=== PATIENT | female | born 1970 | race Hispanic/Latino ===

== ENCOUNTER 2021-05-05 21:18 | Emergency (ER) | payer OTHER ==
[~2021-05-05] VITALS: Ht 160 cm; Wt 74.4 kg
[2021-05-05 23:06] VITALS: BP 144/92
== END 2021-05-05 23:10 | disposition home or self-care (01) ==
LOC: ER 21:23
DX: G51.0 Bell's palsy (principal); E11.9 Type 2 diabetes mellitus without complications; E78.00 Pure hypercholesterolemia, unspecified
CPT/HCPCS: 70450; 99283